=== PATIENT | female | born 1965 | race Caucasian/White ===

== ENCOUNTER 2019-03-05 22:26 | Emergency (ER) | payer BC, OTHER ==
[~2019-03-05] VITALS: Ht 170.2 cm; Wt 54.4 kg
[~2019-03-05 22:26] MED LIST: ZANTAC 7575 MG PO
--- NOTE | 2019-03-05 22:28 | NUR ---
RADIOSONDE OPERATOR NOTIFIED
--- OUTSIDE RECORDS SUMMARY | 2019-03-05 22:29 | XMS REPORT ---
Author Author [facility] Address Unknown Phone Unavailable Care Team Providers Care Hydro Plant Technician Name Role Phone Unavailable Unavailable Payers Payer Name Policy Type Policy Number Effective Date Expiration Date Problems This patient has no known problems. Allergies, Adverse Reactions, Alerts Allergy Name Allergy Type Status Severity Reaction(s) Onset Date Inactive Date Treating Clinician Comments No Known Allergies DA Active U 2018-10-28 00:00:00 No Known Allergies DA Active U 2018-07-18 00:00:00 Medications This patient has no known medications. Results Test Description Test Time Test Comments Text Results Atomic Results Result Comments TROPONIN-I 2018-10-28 23:49:00 TROPONIN-I (test code=TROPI) <0.015 ng/mL 0-0.045 COMMENTS TO INSTRUMENT LENS GRINDER: COLLECT 3 HOURS AFTER PREVIOUS [id number] 20:20:00* Test Item Value Reference Range Comments TROPONIN-I (test code=TROPI) <0.015 ng/mL 0-0.045 COMMENTS TO INSTRUMENT LENS GRINDER: COLLECT 3 HOURS AFTER PREVIOUS SAMPLE- CT ABD PELVIS W/[id number] 14:09:00 Name: ONELIATAMEKA QUICKA [facility] : 1965 Age/S: 53 / F [address] Unit #: [id number] Loc: [place] [address] Phys: Skyler Moyer MD Acct: [id number] Dis Date: Status: REG ER PHONE #: [phone] Exam Date: 10/28/2018 1329 FAX #: [phone] Reason: upper abd pain EXAMS: CPT CODE: [id number] CT ABD PELVIS W/CONT 54846 HISTORY: Mid chest pain. COMPARISON: None available. CT chest with contrast: 100 mL of Isovue-370. Automated exposure control. No aortic aneurysm or dissection. Unremarkable pulmonary arteries (not performed as PE protocol). Unremarkable neck vasculature. Well-opacified SVC. Normal thyroid glands. No mediastinal hematoma. No pathologic adenopathy. Esophageal wall is not thickened. Cardiac silhouette is normal. No p ericardial effusion. Subcutaneous tissues and the musculature demo nstrating contusion along the medial pectoralis muscle with edema. No lyti c or blastic lesions noted within the bony skeleton. Fracture of the mid s ternum along its anterior as well as the posterior cortex without displace ment. The lungs are clear of infiltrates, effusion or congestion a nd contusion. No pneumothorax is noted. Dependent changes are noted. Mild bullous changes in the apices. IMPRESSION: Right medial chest wall/pectoralis muscle contusion. Fracture of the mid sternum involving both anterior and posterior cortex without displac ement. CT ABDOMEN: The hepatic parenchyma is without laceration. Homogeneous enhancement. No perihepatic fluid is no rosalva. Markedly distended gallbladder with gallstones. U nremarkable spleen without laceration. The stomach distended incompletel y but it is normal in appearance. Pancreas is enhancing homoge neously. Unremarkable adrenals. Kidneys are free from hydroure teronephrosis. Homogeneous enhancement. Bilateral excretion is noted. No pathologic adenopathy. Well-opacified abdominal and pelvic PAGE 1 Signed Report (CONTINUED) N rich: BRIDGETT ROUSSEAU [facility] : 0 1965 Age/S: 53 / F [address] [facility] Unit #: [id number] Loc: [place] [address] Phys: Skyler Moyer MD Acct: [id number] Dis D ate: Status: REG ER PHONE #: Exam Date: 10/28/2018 1329 FAX #: [phone] Reason: upper abd pain EXAMS: CPT CODE: [id number] CT ABD PELVIS W/ CONT 40182 <Continued> vasculature with atherosclerotic change. No bowel obstruction or colitis or diverticulitis or enteritis. Mild fluid distention of the right colon. CT PELVIS: Appendix is not visible with certainty however no inflammatory changes are noted. Pelvic bowel loops are unobstructed. Unremarkable well-distended urinary bladder. The uterus is atrophied with complex cyst with partially calcified wall measuring 7.1 cm with average Hounsfield unit measurement of 35. This is seen within the left adnexa. Right ovary is not clearly identified. No free fluid or free air or abscess. No pelvic pathologic adenopathy. Subcutaneous tissues and the musculature are without contusion. No lytic or blastic lesions are noted within the bony skeleton. DJD. IMPRESSION: No acute intra-abdominal or intrapelvic pathology. Complex left adnexal cyst measuring 7.1 cm with partially calcified wall. at 1409 Repor rosalva and signed by: Erasmo Zaman M.D. CC: Skyler Moyer MD Technologist:Wali Stevenson RT(R),(MR),(CT); CTDI: DLP: Trnscb Date/Time: 10/28/2018 (7693) [email or web address] Orig Print D/T: S: 10/28/2018 (7604) CTDI: DLP: PAGE 2 Signed Report - CT CHEST W/[id number] 14:09:00 Name: BRIDGETT ROUSSEAU [facility] : 1965 Age/S: 53 / F [address] [facility] Unit #: [id number] Loc: [place] [address] Phys: Skyler Moyer MD Acct: [id number] Dis Date: Status: REG ER PHONE #: [phone] Exam Date: 10/28/2018 1329 FAX #: [phone] Reason: mid chest pain EXAMS: CPT CODE: [id number] CT CHEST W/CONTRAST 92808 HISTORY: Mid chest pain. COMPARISON: None available. CT chest with contrast: 100 mL of Isovue-370. Automated exposure control. No aortic aneurysm or dissection. Unremarkable pulmonary arteries (not performed as PE protocol). Unremarkable neck vasculature. Well-opacified SVC. Normal thyroid glands. No mediastinal hematoma. No pathologic adenopathy. Esophageal wall is not thickened. Cardiac silhouette is normal. No pericardial effusion. Subcutaneous tissues and the musculature demonstrating contusion along the medial pectoralis muscle with edema. No lytic or blastic lesions noted within the bony skeleton. Fracture of the mid sternum along its anterior as well as the posterior cortex without displacement. The lungs are clear of infiltrates, effusion or congestion and contusion. No pneumothorax is noted. Dependent changes are noted. Mild bullous changes in the apices. IMPRESSION: Right medial chest wall/pectoralis muscle contusion. Fracture of the mid sternum involving both anterior and posterior cortex without displacement. CT ABDOMEN: The hepatic parenchyma is without laceration. Homogeneous enhancement. No perihepatic fluid is noted. Markedly distended gallbladder with gallstones. Unremarkable spleen without laceration. The stomach distended incompletely but it is normal in appearance. Pancreas is enhancing homogeneously. Unremarkable adrenals. Kidneys are free from hydroure teronephrosis. Homogeneous enhancement. Bilateral excretion is noted. No pathologic adenopathy. Well-opacified abdominal and pelvic PAGE 1 Signed Report (CONTINUED) N rich: BRIDGETT ROUSSEAU [facility] : 0 1965 Age/S: 53 / F [address] [facility] Unit #: [id number] Loc: [place] [address] Phys: Skyler Moyer MD Acct: [id number] Dis D ate: Status: REG ER PHONE #: Exam Date: 10/28/2018 1329 FAX #: [phone] Reason: mid chest pain EXAMS: CPT CODE: [id number] CT CHEST W/CONTR AST 91327 <Continued> vasculature with atherosclerotic change. No bowel obstruction or colitis or diverticulitis or enteritis. Mild fluid distention of the right colon. CT PELVIS: Appendix is not visible with certainty however no inflammatory changes are noted. Pelvic bowel loops are unobstructed. Unremarkable well-distended urinary bladder. The uterus is atrophied with complex cyst with partially calcified wall measuring 7.1 cm with average Hounsfield unit measurement of 35. This is seen within the left adnexa. Right ovary is not clearly identified. No free fluid or free air or abscess. No pelvic pathologic adenopathy. Subcutaneous tissues and the musculature are without contusion. No lytic or blastic lesions are noted within the bony skeleton. DJD. IMPRESSION: No acute intra-abdominal or intrapelvic pathology. Complex left adnexal cyst measuring 7.1 cm with partially calcified wall. at 1409 Repor rosalva and signed by: Erasmo Zamna M.D. CC: Skyler Moyer MD Technologist:Wali Stevenson RT(R),(MR),(CT); CTDI: DLP: Trnscb Date/Time: 10/28/2018 (9407) [email or web address] Orig Print D/T: S: 10/28/2018 (5408) CTDI: DLP: PAGE 2 Signed Report BASIC METABOLIC [id number] 13:59:00* Test Item Value Reference Range Comments SODIUM (test code=NA) 137 mmol/L 136-145 POTASSIUM (test code=K) 3.8 mmol/L 3.5-5.1 CHLORIDE (test code=CL) 105.0 mmol/L 98-107 CARBON DIOXIDE (test code=CO2) 20.0 mmol/L 21-32 ANION GAP (test code=GAP) 15.8 10-20 GLUCOSE (test code=GLU) 82 mg/dL 74-106 BLOOD UREA NITROGEN (test code=BUN) 7 mg/dL 7-18 GLOMERULAR FILTRATION RATE (test code=GFR) > 60 mL/min >=60 Estimated GFR by using Modified MDRD formula.Chronic kidney disease is defined as either kidney damageor GFR <60 mL/min/1.73 m2 for >3 months. CREATININE (test code=CREAT) 0.50 mg/dL 0.55-1.02 Note change in reference range due to change in reagent. BUN/CREATININE RATIO (test code=BUN/CREA) 12.8 10-20 CALCIUM (test code=CA) 8.4 mg/dL 8.5-10.1 HEPATIC FUNCTION [id number] 13:59:00* Test Item Value Reference Range Comments TOTAL PROTEIN (test code=PROT) 7.4 gram/dL 6.4-8.2 ALBUMIN (test code=ALB) 3.4 g/dL 3.4-5.0 GLOBULIN (test code=GLOB) 4.0 gram/dL 2.7-4.2 ALBUMIN/GLOBULIN RATIO (test code=A/G) 0.8 0.75-1.50 BILIRUBIN TOTAL (test code=BILT) 0.40 mg/dL 0.0-1.0 BILIRUBIN DIRECT (test code=BILD) 0.12 mg/dL 0.0-0.20 SGOT/AST (test code=AST) 28 IUnit/L 15-37 SGPT/ALT (test code=ALT) 24 IUnit/L 12-78 ALKALINE PHOSPHATASE TOTAL (test code=ALKP) 92 IUnit/L 45-117 Note change in reference range due to change in reagent. [id number] 13:59:00* Test Item Value Reference Range Comments LIPASE (test code=LIP) 367 U/L 73.0-393.0 [id number] 13:59:00* Test Item Value Reference Range Comments ALCOHOL (test code=ALC) 19 mg/dL 0.0-3.0 INTERPRETIVE DATA NOTE: POSITIVE SCREENING RESULTS SHOULD BE CONSIDERED PRESUMPTIVE.WHEN COLLECTED FOR MEDICAL PURPOSES ONLY. SPECIMEN WILL NOTBE COLLECTED BY CHAIN OF CUSTODY.IF A CONFIRMATION OF POSITIVE RESULTS IS DESIRED, ACONFIRMATION TEST MUST BE REQUESTED BY THE PHYSICIAN AT ANADDITIONAL CHARGE TO THE PATIENT. - CT C-SPINE W/O [id number] 13:56:00 Name: BRIDGETT ROUSSEAU [facility] : 1965 Age/S: 53 / F [address] [facility] Unit #: [id number] Loc: [place] [address] Phys: Skyler Moyer MD Acct: [id number] Dis Date: Status: REG ER PHONE #: [phone] Exam Date: 10/28/2018 1327 FAX #: [phone] Reason: Neck Pain EXAMS: CPT CODE: [id number] CT C-SPINE W/O CONTRAST 21571 HISTORY: Neck pain. COMPARISON: None available. CT cervical spine without contrast: Automated exposure control. No acute fracture of the cervical spine. Scattered posterior marginal osteophytes. No canal or foraminal stenosis is noted. No prevertebral soft tissue swelling is noted either. Thyroid glands are unremarkable. The mediastinum is unremarkable. Lung apices are clear. Dependent and bullous changes. Anatomic alignment. Vertebral body heights are maintained. Disc spaces are preser ana. Lateral masses are well marginated IMPRESSION: No acute fracture. Anatomic alignment. Vertebral body heights are maintained. at 1356 Reported and signed by: Erasmo Zaman M.D. CC: Skyler Moyer MD Techno logist:Danisha Lal,RT(R),CT CTDI: DLP: Trnscb Date/Time : 10/28/2018 (1356) [email or web address] Orig Print D/T: S: 10/29/19 19 (5819) CTDI: DLP: PAGE 1 Nori d Report BASIC METABOLIC [id number] 13:51:00 * Test Item Value Reference Range Comments SODIUM (test code=NA) 137 mmol/L 136-145 POTASSIUM (test code=K) 3.8 mmol/L 3.5-5.1 CHLORIDE (test code=CL) 105.0 mmol/L 98-107 CARBON DIOXIDE (test code=CO2) mmol/L 21-32 ANION GAP (test code=GAP) 10-20 GLUCOSE (test code=GLU) mg/dL 74-106 BLOOD UREA NITROGEN (test code=BUN) mg/dL 7-18 GLOMERULAR FILTRATION RATE (test code=GFR) mL/min >=60 CREATININE (test code=CREAT) mg/dL 0.55-1.02 BUN/CREATININE RATIO (test code=BUN/CREA) 10-20 CALCIUM (test code=CA) mg/dL 8.5-10.1 HEPATIC FUNCTION [id number] 13:51:00* Test Item Value Reference Range Comments TOTAL PROTEIN (test code=PROT) gram/dL 6.4-8.2 ALBUMIN (test code=ALB) g/dL 3.4-5.0 GLOBULIN (test code=GLOB) gram/dL 2.7-4.2 ALBUMIN/GLOBULIN RATIO (test code=A/G) 0.75-1.50 BILIRUBIN TOTAL (test code=BILT) mg/dL 0.0-1.0 BILIRUBIN DIRECT (test code=BILD) mg/dL 0.0-0.20 SGOT/AST (test code=AST) IUnit/L 15-37 SGPT/ALT (test code=ALT) IUnit/L 12-78 ALKALINE PHOSPHATASE TOTAL (test code=ALKP) IUnit/L 45-117 [id number] 13:51:00* Test Item Value Reference Range Comments LIPASE (test code=LIP) U/L 73.0-393.0 [id number] 13:51:00* Test Item Value Reference Range Comments ALCOHOL (test code=ALC) mg/dL 0-3 CBC W/O [id number] 13:42:00* Test Item Value Reference Range Comments WHITE BLOOD CELL (test code=WBC) 6.7 K/mm3 4.5-12.5 RED BLOOD CELL (test code=RBC) 3.99 mill/mm3 3.7-5.2 HEMOGLOBIN (test code=HGB) 12.8 gram/dL 11.5-15.5 HEMATOCRIT (test code=HCT) 37.7 % 36.0-46.0 MEAN CELL VOLUME (test code=MCV) 94.5 fL 80-98 MEAN CELL HGB (test code=MCH) 32.1 picogram 27.0-33.0 MEAN CELL HGB CONCETRATION (test code=MCHC) 34.0 gram/dL 33.0-36.0 RED CELL DISTRIBUTION WIDTH (test code=RDW) 12.5 % 11.6-16.2 PLATELET COUNT (test code=PLT) 156 K/mm3 150-450 MEAN PLATELET VOLUME (test code=MPV) 11.1 fL 6.7-11.0 - CT HEAD/BRAIN W/O [id number] 13:40:00 Name: BRIDGETT ROUSSEAU [facility] : 1965 Age/S: 53 / F [address] [facility] Unit #: [id number] Loc: [place] [address] Phys: Skyelr Moyer MD Acct: [id number] Dis Date: Status: REG ER PHONE #: [phone] Exam Date: 10/28/2018 1327 FAX #: [phone] Reason: HEADACHE EXAMS: CPT CODE: [id number] CT HEAD/BRAIN W/O CONT 93572 HISTORY: Headache. COMPARISON: MRI brain from July 19, [address] from July 18, 2018. CT brain without contrast: Automated exposure control. No acute intracranial bleeds or extra-axial collections are noted. No acute territorial vascular infarction is noted. 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 The sulci, gyri, ventricles and subarachnoid spaces and the basilar cisterns are normal for patient's age. No herniation or hydrocephalus or midline shift is noted. Mild periventricular ischemic gliosis is noted. Age-appropriate atrophy is noted as well. Portions of the visualized paranasal sinuses are normal. No obvious bony calvarial defect is noted. IMPRESSION: No acute intracranial bleeds or extra-axial c ollections. No acute territorial vascular infarction. No herniation or hydrocephalus or midline shift. Ch ronic white matter ischemic disease and atrophy . * * at 1340 Reported and signed by: Erasmo Zaman M.D. CC: Skyler Moyer MD Technologist:Danisha Lal,RT(R),CT CTDI: DLP: Trnscb Date/Time: 10/28/2018 (1340) [email or web address] Orig Print D/T: S: 10/28/2018 (9153) CTDI: DLP: PAGE 1 Signed Report - XR FOREARM 2 VIEWS [id number] 12:41:00 FAX: Skyler Moyer MD [phone] [place]: [address]: REG Name: BRIDGETT MINER [facility] : [birth year] Age/S: 53/F [address] Unit #: [id number] Loc: [place] [address] Phys: Skyler Moyer MD Acct: [id number] Dis Date: Status: REG ER PHONE #: [phone] Exam Date: 10/28/2018 1220 FAX #: [phone] Reason: FOREARM PAIN EXAMS: CPT CODE: [id number] XR FOREARM [address] [place] [address] HISTORY: Pain after trauma. COMPARISON: None available. 3 VIEWS OF THE RIGHT HAND AND WRIST: No acute fracture or dislocation. Ring obscures the first p roximal phalanx. Joint spaces are preserved. No erosive or destructive changes. The wrist joint is preserved. No AVN of the lunate or the scap hoid bones. IMPRESSION: No acute fracture or d islocation of the right hand and wrist. 2 VIEWS OF THE LEFT FOREARM: Nondisplaced fracture of the distal ulnar diaphysis. Fracture of the ulna styloid as well. The wrist joint is preserved. No radial fracture. The elbow joint appears unremarkable a s well. No elbow joint fluid is noted. IMPRESSION: Acute traumatic oblique nondisplaced fracture of the distal ulnar diaphysis and fracture of the ulnar styloid. at 1241 Repor rosalva and signed by: Erasmo Zaman M.D. CC: Skyler Moyer MD Technologist: NKECHI RODRIGUEZ RT (R) Trnscrd Date/Time/By: 10/28/2018 (3073) : By: [email or web address] Orig Print D/T: S: 10/28/2018 (6964) PAGE 1 Signed Report - XR WRIST 3 + V RT 2018-10-28 12:41:00 FAX: Skyler Moyer MD [phone] [place]: St: REG Name: BRIDGETT MINER [facility] : [birth year] Age/S: 53/F [address] [facility] #: [id number] Loc: [place] [address] Phys: Skyler Moyer MD Acct: [id number] Dis Date: Status: REG ER PHONE #: [phone] Exam Date: 10/28/2018 1226 FAX #: [phone] Reason: WRIST PAIN EXAMS: CPT CODE: [id number] XR WRIST 3 + V RT [address] HISTORY: Pain after trauma. COMPARISON: None available. 3 VIEWS OF THE RIGHT HAND AND WRIST: No acute fracture or dislocation. Ring obscures the first p roximal phalanx. Joint spaces are preserved. No erosive or destructive changes. The wrist joint is preserved. No AVN of the lunate or the scap hoid bones. IMPRESSION: No acute fracture or d islocation of the right hand and wrist. 2 VIEWS OF THE LEFT FOREARM: Nondisplaced fracture of the distal ulnar diaphysis. Fracture of the ulna styloid as well. The wrist joint is preserved. No radial fracture. The elbow joint appears unremarkable a s well. No elbow joint fluid is noted. IMPRESSION: Acute traumatic oblique nondisplaced fracture of the distal ulnar diaphysis and fracture of the ulnar styloid. at 1241 Repor rosalva and signed by: Erasmo Zaman M.D. CC: Skyler Moyer MD Technologist: NKECHI RORDIGUEZ RT (R) Trnscrd Date/Time/By: 10/28/2018 (0997) : By: [email or web address] Orig Print D/T: S: 10/28/2018 (0444) PAGE 1 Signed Report - XR HAND 3 + V RT 2018-10-28 12:41:00 FAX: Skyler Moyer MD [phone] [place]: St: REG Name: BRIDGETT MINER [facility] : [birth year] Age/S: 53/F [address] [facility] Unit #: [id number] Loc: [place] [address] Phys: Skyler Moyer MD Acct: [id number] Dis Date: Status: REG ER PHONE #: [phone] Exam Date: 10/28/2018 1230 FAX #: [phone] Reason: HAND PAIN EXAMS: CPT CODE: [id number] XR HAND 3 + [place] [address] HISTORY: Pain after trauma. COMPARISON: None available. 3 VIEWS OF THE RIGHT HAND AND WRIST: No acute fracture or dislocation. Ring obscures the first p roximal phalanx. Joint spaces are preserved. No erosive or destructive changes. The wrist joint is preserved. No AVN of the lunate or the scap hoid bones. IMPRESSION: No acute fracture or d islocation of the right hand and wrist. 2 VIEWS OF THE LEFT FOREARM: Nondisplaced fracture of the distal ulnar diaphysis. Fracture of the ulna styloid as well. The wrist joint is preserved. No radial fracture. The elbow joint appears unremarkable a s well. No elbow joint fluid is noted. IMPRESSION: Acute traumatic oblique nondisplaced fracture of the distal ulnar diaphysis and fracture of the ulnar styloid. at 1241 Repor rosalva and signed by: Erasmo Zaman M.D. CC: Skyler Moyer MD Technologist: NKECHI RODRIGUEZ RT (R) Trnscrd Date/Time/By: 10/28/2018 (3227) : By: [email or web address] Orig Print D/T: S: 10/28/2018 (6341) PAGE 1 Signed Report - XR CHEST 1 [id number] 12:37:00 FAX: Skyler Moyer MD [phone] [place]: St: REG Name: Flora MUELLERBRIDGETT [facility] : [birth year] Age/S: 53/F [address] Unit #: [id number] Loc: [place] [address] Phys: Skyler Moyer MD Acct: [id number] Dis Date: Status: REG ER PHONE #: [phone] Exam Date: 10/28/2018 1217 FAX #: [phone] Reason: CHEST PAIN EXAMS: CPT CODE: [id number] XR CHEST 1 V 71784 HISTORY: Pain. BRENDON RISON: None available. No acute infiltrates, effusion or congestio n is noted. No pneumothorax. Mild hyperinflation and bullous changes. The cardiac and mediastinal silhouette are within normal limits. IMPRESSION: No acute infiltrates, effusion or con gestion. at 1232 Reported and signed by: Erasmo Zaman M.D. CC: Skyler Moyer MD Technologist: NKECHI BARNES (R) Trnscrd Giovanny e/Time/By: 10/28/2018 (5880) : By: [email or web address] Orig Print D/T: S: 2018 (7560) PAGE 1 Signed Report
--- NOTE | 2019-03-05 23:03 | Diagnostic Imaging Report ---
EXAMINATION: Head CT HISTORY: Left-sided numbness for the last month, evaluate for stroke COMPARISON: None. TECHNIQUE: Multidetector axial images were obtained without contrast from the foramen magnum to the vertex . The images were reconstructed using brain and bone algorithms. Thin section brain images were reformatted into coronal and sagittal planes. Image quality: Motion/streaking artifact limits the evaluation of the skull base and posterior cranial fossa. Dose modulation, iterative reconstruction, and/or weight based adjustment of the mA/kV was utilized to reduce the radiation dose to as low as reasonably achievable. FINDINGS: Parenchyma: 1. Small age indeterminate, likely chronic lacunar infarcts in the right striato-capsular region and 2 smaller ones in the right thalamus. 2. Few scattered matter hypodensities, most likely nonspecific, atelectatic changes. 3. No mass or hemorrhage. No CT evidence of acute territorial vascular insult. Extra-axial spaces:No abnormal density. No extra-axial fluid collections Brain volume: Normal for age. Ventricles: No hydrocephalus or displacement. Arteries: No density suggestive of thrombus. Dural sinuses: No abnormal density. Extra-axial spaces: No abnormal density. Foramen magnum: No mass, Chiari malformation, or basilar invagination. Sella: No obvious mass. Paranasal/mastoid sinuses: Imaged portions unremarkable. Skull/Scalp: No lytic or blastic lesions. No fractures. IMPRESSION: 1. No acute intracranial hemorrhage or cortical infarct. 2. Age indeterminate likely chronic lacunar infarcts in the right deep flores nuclei as detailed above. If clinical concern remains for acute infarction consider brain MRI without and with contrast for further evaluation. 3. Mild chronic microvascular ischemic changes. Signed by: Dr. Leticia Madden M.D. on 03/05/2019 11:00 PM
[2019-03-05 23:04] LABS: BASOPHILS % 0.4 % (0.0-1.0); EOSINOPHILS # (AUTO) 0.2 (0.0-0.4); EOSINOPHILS % 3.3 % (0.0-6.0); HEMATOCRIT 37.3 % (34.2-44.1); HEMOGLOBIN 13.1 g/dL (12.0-16.0); LYMPHOCYTES % 41.9 % (18.0-39.1); MEAN CORPUSCULAR HEMOGLOBIN 33.2 pg (28-32); MEAN CORPUSCULAR HGB CONC 35.1 g/dL (31-35); MEAN CORPUSCULAR VOLUME 94.7 fL (81-99); MONOCYTES # (AUTO) 0.4 (0.2-0.8); MONOCYTES % 8.3 % (4.4-11.3); NEUTROPHILS # (AUTO) 2.2 (2.1-6.9); NEUTROPHILS % 45.5 % (38.7-80.0); PLATELET COUNT 121 x10e3/uL (140-360); RED BLOOD COUNT 3.94 x10e6/uL (3.6-5.1); RED CELL DISTRIBUTION WIDTH 12.1 % (11.7-14.4)
[2019-03-05 23:14] LABS: INR 0.94; PROTHROMBIN TIME 13.1 seconds (11.9-14.5)
[2019-03-05 23:15] LABS: PARTIAL THROMBOPLASTIN TIME 27.5 seconds (23.8-35.5)
[2019-03-05 23:24] LABS: ALANINE AMINOTRANSFERASE 30 IU/L (0-55); ALBUMIN 3.7 g/dL (3.5-5.0); ALBUMIN/GLOBULIN RATIO 1.3 (0.8-2.0); ALKALINE PHOSPHATASE 90 IU/L (40-150); ANION GAP 17.5 mmol/L (8-16); BLOOD UREA NITROGEN < 5 mg/dL (7-26); CARBON DIOXIDE 20 mmol/L (22-29); CHLORIDE 97 mmol/L (98-107); CREATINE KINASE 49 IU/L (29-168); CREATININE, SERUM 0.58 mg/dL (0.57-1.11); EST GLOMERULAR FILTRATION RATE > 60 ML/MIN (60-); GLUCOSE 77 mg/dL (74-118); POTASSIUM 3.5 mmol/L (3.5-5.1); SODIUM 131 mmol/L (136-145)
[2019-03-05 23:26] LABS: BUN/CREATININE RATIO 9 (6-25)
[2019-03-05 23:38] LABS: BILIRUBIN,URINE NEGATIVE (NEGATIVE); CLARITY,URINE CLEAR (CLEAR); COLOR,URINE YELLOW (YELLOW); KETONES,URINE NEGATIVE (NEGATIVE); LEUKOCYTE ESTERASE ,URINE NEGATIVE (NEGATIVE); NITRITE,URINE NEGATIVE (NEGATIVE); PROTEIN,URINE DIPSTICK NEGATIVE (NEGATIVE); URINE UROBILINOGEN 0.2 mg/dL (0.2 - 1)
[2019-03-05 23:40] LABS: AMPHETAMINES SCREEN,URINE NEGATIVE (NEGATIVE); BENZODIAZEPINES SCREEN,URINE NEGATIVE (NEGATIVE); PHENCYCLIDINE SCREEN,URINE NEGATIVE (NEGATIVE)
[2019-03-05 23:51] LABS: RBC,URINE 0-5 /HPF (0-5)
[2019-03-05 23:52] LABS: BACTERIA,URINE MODERATE /HPF; EPITHELIAL CELLS,URINE FEW /LPF
[2019-03-06 00:14] VITALS: BP 129/68
--- NOTE | 2019-03-06 00:37 | Diagnostic Imaging Report ---
EXAMINATION: CHEST SINGLE (PORTABLE) INDICATION: Left-sided numbness COMPARISON: None FINDINGS: AP view TUBES and LINES: None. LUNGS: Lungs are well inflated. Lungs are clear. There is no evidence of pneumonia or pulmonary edema. PLEURA: No pleural effusion or pneumothorax. HEART AND MEDIASTINUM: The cardiomediastinal silhouette is unremarkable. A 4 mm round hyperdensity projects in the mid upper mediastinum. BONES AND SOFT TISSUES: No acute osseous lesion. Soft tissues are unremarkable. UPPER ABDOMEN: No free air under the diaphragm. IMPRESSION: No acute cardiopulmonary abnormality. A 4 mm round hyperdensity projects in the mid upper mediastinum, unclear if this is external to the patient. Recommend lateral chest radiograph for localization. Signed by: Jose Alfredo Mcintosh DO on 03/06/2019 12:34 AM
== END 2019-03-06 00:26 | disposition home or self-care (01) ==
LOC: ER 22:29
DX: R53.1 Weakness (principal); F10.229 Alcohol dependence with intoxication, unspecified; I10 Essential (primary) hypertension; F17.210 Nicotine dependence, cigarettes, uncomplicated
CPT/HCPCS: 36415; 70450; 71045; 80053; 80307; 80320; 81001; 82550; 82553; 84484; 85025; 85610; 85730; 93005; 99284

== ENCOUNTER 2021-07-23 08:59 | Inpatient (IN) | payer SELFPAY ==
[~2021-07-23] VITALS: Ht 170.2 cm; Wt 54.4 kg
[2021-07-23] MEDS ORDERED: SODIUM CHLORIDE 0.9% 1000ML 1,000 ML IV STA (09:31)
[2021-07-23] MEDS ORDERED: ONDANSETRON HCL INJ 2MG/ML 2ML 2 MG/ML VIAL IV STA (09:31)
[2021-07-23 09:56] LABS: BASOPHILS % 0.5 % (0.0-1.0); EOSINOPHILS # (AUTO) 0.1 (0.0-0.4); EOSINOPHILS % 2.3 % (0.0-6.0); HEMATOCRIT 29.5 % (34.2-44.1); HEMOGLOBIN 9.8 g/dL (12.0-16.0); LYMPHOCYTES # (AUTO) 1.2 (1.0-3.2); MEAN CORPUSCULAR HEMOGLOBIN 32.8 pg (28-32); MEAN CORPUSCULAR HGB CONC 33.2 g/dL (31-35); MEAN CORPUSCULAR VOLUME 98.7 fL (81-99); MONOCYTES # (AUTO) 0.5 (0.2-0.8); MONOCYTES % 9.2 % (4.4-11.3); NEUTROPHILS # (AUTO) 3.8 (2.1-6.9); NEUTROPHILS % 66.5 % (38.7-80.0); PLATELET COUNT 170 x10e3/uL (140-360); RED BLOOD COUNT 2.99 x10e6/uL (3.6-5.1); RED CELL DISTRIBUTION WIDTH 13.6 % (11.7-14.4)
[2021-07-23 10:13] LABS: ALANINE AMINOTRANSFERASE 37 IU/L (0-55); ALBUMIN 2.7 g/dL (3.5-5.0); ALBUMIN/GLOBULIN RATIO 0.9 (0.8-2.0); ALKALINE PHOSPHATASE 176 IU/L (40-150); AMYLASE 162 U/L (25-125); ANION GAP 19.1 mmol/L (8-16); BLOOD UREA NITROGEN < 5 mg/dL (7-26); CALCIUM 8.6 mg/dL (8.4-10.2); CARBON DIOXIDE 24 mmol/L (22-29); CHLORIDE 89 mmol/L (98-107); CREATINE KINASE 23 IU/L (29-168); CREATININE, SERUM 0.71 mg/dL (0.57-1.11); EST GLOMERULAR FILTRATION RATE 85 ML/MIN (60-); GLUCOSE 103 mg/dL (74-118); LIPASE 42 U/L (8-78); MAGNESIUM 1.6 MG/DL (1.3-2.1); POTASSIUM 3.1 mmol/L (3.5-5.1); SODIUM 129 mmol/L (136-145)
[2021-07-23 10:14] LABS: BUN/CREATININE RATIO 7 (6-25); INR 1.06; PROTHROMBIN TIME 14.7 seconds (11.9-14.5)
[2021-07-23 11:16] LABS: CLARITY,URINE CLEAR (CLEAR); COLOR,URINE YELLOW (YELLOW); LEUKOCYTE ESTERASE ,URINE NEGATIVE (NEGATIVE); NITRITE,URINE NEGATIVE (NEGATIVE); PROTEIN,URINE DIPSTICK NEGATIVE (NEGATIVE)
[2021-07-23 11:17] LABS: KETONES,URINE 1+ (NEGATIVE); URINE UROBILINOGEN 0.2 mg/dL (0.2 - 1)
[2021-07-23 11:34] LABS: BACTERIA,URINE MANY /HPF; EPITHELIAL CELLS,URINE FEW /LPF
[2021-07-23 11:35] LABS: AMPHETAMINES SCREEN,URINE NEGATIVE (NEGATIVE); BENZODIAZEPINES SCREEN,URINE NEGATIVE (NEGATIVE); PHENCYCLIDINE SCREEN,URINE NEGATIVE (NEGATIVE)
[2021-07-23] MEDS ORDERED: POTASSIUM CHLORIDE 20 MEQ TAB CR PO STA (12:51)
[2021-07-23] MEDS: PIPERACILLIN/TAZOBACTAM 3.375 GM in SODIUM CHLORIDE 0.9% 50ML 50 ML IV SCH ×2 (13:24→17:38)
[2021-07-23] MEDS: SODIUM CHLORIDE 0.9% 1000ML 1,000 ML IV SCH (14:13)
[2021-07-23 17:18] LABS: CREATINE KINASE MB 0.4 ng/mL (0-5.0)
[2021-07-23 17:20] VITALS: BP 121/73
[2021-07-23] MEDS: Morphine 4mg Syringe 4 MG/ML INJ IV PRN ×2 (17:39→22:05)
[2021-07-23] MEDS: ONDANSETRON HCL INJ 2MG/ML 2ML 2 MG/ML VIAL IV PRN (17:39)
[2021-07-23] MEDS ORDERED: POTASSIUM CHLORIDE 20 MEQ TAB CR PO ONE (19:25)
[2021-07-23 20:00] VITALS: BP 100/70
[2021-07-23 21:00] VITALS: BP 100/70
[2021-07-23 23:29] LABS: % IRON SATURATION 38 % (15-50); IRON 64 ug/dL (50-170); TOTAL IRON BINDING CAPACITY 169 ug/dL (261-478); TRANSFERRIN 121 mg/dL (180-382)
[2021-07-23] MEDS ORDERED: THIAMINE HCL INJ 100 MG/ML 2ML VIAL ONE (23:55)
[2021-07-24] VITALS: BP 98/66
[2021-07-24] MEDS ORDERED: MULTIVITAMINS- 12 INJECTION 10 ML, FOLIC ACID MDV 1 MG, THIAMINE HCL INJ 100 MG in SODI... IV ONE ×4
[2021-07-24] MEDS: PIPERACILLIN/TAZOBACTAM 3.375 GM in SODIUM CHLORIDE 0.9% 50ML 50 ML IV SCH ×4 (00:30→16:24)
[2021-07-24] MEDS ORDERED: FOLIC ACID 5 MG/ML VIAL ONE (00:38)
[2021-07-24] MEDS: Morphine 4mg Syringe 4 MG/ML INJ IV PRN ×5 (02:25→20:23)
[2021-07-24] MEDS: SODIUM CHLORIDE 0.9% 1000ML 1,000 ML IV SCH (02:50)
[2021-07-24 05:14] LABS: BASOPHILS % 0.7 % (0.0-1.0); EOSINOPHILS # (AUTO) 0.2 (0.0-0.4); EOSINOPHILS % 3.7 % (0.0-6.0); HEMATOCRIT 24.5 % (34.2-44.1); HEMOGLOBIN 8.1 g/dL (12.0-16.0); LYMPHOCYTES % 24.7 % (18.0-39.1); MEAN CORPUSCULAR HEMOGLOBIN 33.3 pg (28-32); MEAN CORPUSCULAR HGB CONC 33.1 g/dL (31-35); MEAN CORPUSCULAR VOLUME 100.8 fL (81-99); MONOCYTES # (AUTO) 0.5 (0.2-0.8); MONOCYTES % 11.4 % (4.4-11.3); NEUTROPHILS # (AUTO) 2.4 (2.1-6.9); NEUTROPHILS % 59.3 % (38.7-80.0); PLATELET COUNT 120 x10e3/uL (140-360); RED BLOOD COUNT 2.43 x10e6/uL (3.6-5.1)
[2021-07-24 05:39] LABS: ALANINE AMINOTRANSFERASE 20 IU/L (0-55); ALBUMIN 2.2 g/dL (3.5-5.0); ALKALINE PHOSPHATASE 121 IU/L (40-150); AMYLASE 128 U/L (25-125); ANION GAP 13.8 mmol/L (8-16); BLOOD UREA NITROGEN < 5 mg/dL (7-26); CALCIUM 7.5 mg/dL (8.4-10.2); CARBON DIOXIDE 23 mmol/L (22-29); CHLORIDE 101 mmol/L (98-107); CREATININE, SERUM 0.61 mg/dL (0.57-1.11); EST GLOMERULAR FILTRATION RATE 102 ML/MIN (60-); GLUCOSE 71 mg/dL (74-118); LIPASE 17 U/L (8-78); POTASSIUM 3.8 mmol/L (3.5-5.1); SODIUM 134 mmol/L (136-145)
[2021-07-24 05:49] LABS: BUN/CREATININE RATIO 8 (6-25)
[2021-07-24 05:58] LABS: CREATINE KINASE MB 0.4 ng/mL (0-5.0)
[2021-07-24 07:40] VITALS: BP 92/68
[2021-07-24 08:00] VITALS: BP 92/68
[2021-07-24 11:09] VITALS: BP 104/64
[2021-07-24] MEDS ORDERED: SODIUM CHLORIDE 0.9% 50ML 50 ML ONE (11:13)
[2021-07-24 14:01] LABS: CREATINE KINASE MB 0.7 ng/mL (0-5.0)
[2021-07-24 16:26] LABS: BODY FLUID APPEARANCE SL.CLOUDY; BODY FLUID COLOR YELLOW; BODY FLUID TYPE PERITONEAL; RBC,BODY FLUID < 200 cells/uL; WBC,BODY FLUID 91 cells/uL
[2021-07-24 17:14] LABS: LYMPHOCYTES,BODY FLUID 34 %; MONO/MACROPHG,BODY FLUID 39 %; NEUTROPHILS,BODY FLUID 27 %
[2021-07-24 20:00] VITALS: BP 107/73
[2021-07-24] MEDS: ONDANSETRON HCL INJ 2MG/ML 2ML 2 MG/ML VIAL IV PRN (20:23)
[2021-07-25] VITALS: BP 109/62
[2021-07-25] MEDS: PIPERACILLIN/TAZOBACTAM 3.375 GM in SODIUM CHLORIDE 0.9% 50ML 50 ML IV SCH ×3 (00:25→11:19)
[2021-07-25] MEDS: ONDANSETRON HCL INJ 2MG/ML 2ML 2 MG/ML VIAL IV PRN (00:32)
[2021-07-25] MEDS: Morphine 4mg Syringe 4 MG/ML INJ IV PRN ×3 (00:32→12:55)
[2021-07-25 04:00] VITALS: BP 90/61
[2021-07-25 04:58] LABS: BASOPHILS # (AUTO) 0.1 (0.0-0.1); EOSINOPHILS # (AUTO) 0.2 (0.0-0.4); EOSINOPHILS % 4.6 % (0.0-6.0); HEMATOCRIT 25.1 % (34.2-44.1); HEMOGLOBIN 8.1 g/dL (12.0-16.0); LYMPHOCYTES # (AUTO) 1.2 (1.0-3.2); LYMPHOCYTES % 24.8 % (18.0-39.1); MEAN CORPUSCULAR HEMOGLOBIN 32.9 pg (28-32); MEAN CORPUSCULAR HGB CONC 32.3 g/dL (31-35); MONOCYTES # (AUTO) 0.5 (0.2-0.8); MONOCYTES % 10.2 % (4.4-11.3); NEUTROPHILS # (AUTO) 2.8 (2.1-6.9); NEUTROPHILS % 58.8 % (38.7-80.0); PLATELET COUNT 130 x10e3/uL (140-360); RED BLOOD COUNT 2.46 x10e6/uL (3.6-5.1); RED CELL DISTRIBUTION WIDTH 13.9 % (11.7-14.4)
[2021-07-25 05:25] LABS: ANION GAP 13.3 mmol/L (8-16); BLOOD UREA NITROGEN < 5 mg/dL (7-26); CALCIUM 7.5 mg/dL (8.4-10.2); CARBON DIOXIDE 22 mmol/L (22-29); CHLORIDE 102 mmol/L (98-107); CREATININE, SERUM 0.55 mg/dL (0.57-1.11); EST GLOMERULAR FILTRATION RATE 115 ML/MIN (60-); POTASSIUM 3.3 mmol/L (3.5-5.1); SODIUM 134 mmol/L (136-145)
[2021-07-25 05:26] LABS: BUN/CREATININE RATIO 9 (6-25)
[2021-07-25 05:37] LABS: GLUCOSE 53 mg/dL (74-118)
[2021-07-25 07:51] VITALS: BP 93/61
[2021-07-25 08:00] VITALS: BP 93/61
[2021-07-25] MEDS ORDERED: FOLIC ACID 1 MG TAB PO SCH (09:00)
[2021-07-25 11:44] VITALS: BP 104/59
== END 2021-07-25 14:45 | disposition home or self-care (01) | DRG 434 ==
LOC: ER 09:22 → ERHOLD 13:34 → MED/SURG 17:18
PROC: 0W9G3ZZ Drainage of Peritoneal Cavity, Percutaneous Approach (ICD-10-PCS; principal; 2021-07-24)
DX: K70.31 Alcoholic cirrhosis of liver with ascites (principal); J44.9 Chronic obstructive pulmonary disease, unspecified; K80.80 Other cholelithiasis without obstruction; I10 Essential (primary) hypertension; Z20.822 Contact with and (suspected) exposure to COVID-19; F10.20 Alcohol dependence, uncomplicated; N83.9 Noninflammatory disorder of ovary, fallopian tube and broad ligament, unspecified; K59.00 Constipation, unspecified; D64.9 Anemia, unspecified
CPT/HCPCS: 36415; 49083; 71045; 74177; 74181; 74470; 76856; 80048; 80053; 80307; 81001; 82040; 82150; 82550; 82553; 82607; 82746; 83540; 83690; 83735; 83880; 84157; 84466; 84484; 85025; 85045; 85610; 85730; 86304; 87070; 87086; 87205; 88112; 88305; 89051; 93005; 94799; 99284; J2270; J2405; J2543; J3411; J7030; U0002

== ENCOUNTER 2023-06-14 10:58 | Inpatient (IN) | payer BC ==
[~2023-06-14] VITALS: Ht 170.2 cm; Wt 55.3 kg
[2023-06-14 11:41] LABS: BASOPHILS % 0.6 % (0.0-1.0); EOSINOPHILS % 0.6 % (0.0-6.0); HEMATOCRIT 36.9 % (34.2-44.1); HEMOGLOBIN 13.7 g/dL (12.0-16.0); LYMPHOCYTES # (AUTO) 1.4 (1.0-3.2); LYMPHOCYTES % 20.7 % (18.0-39.1); MEAN CORPUSCULAR HEMOGLOBIN 33.5 pg (28-32); MEAN CORPUSCULAR HGB CONC 37.1 g/dL (31-35); MEAN CORPUSCULAR VOLUME 90.2 fL (81-99); MONOCYTES # (AUTO) 0.5 (0.2-0.8); MONOCYTES % 7.3 % (4.4-11.3); NEUTROPHILS # (AUTO) 4.8 (2.1-6.9); NEUTROPHILS % 70.4 % (38.7-80.0); PLATELET COUNT 165 x10e3/uL (140-360); RED BLOOD COUNT 4.09 x10e6/uL (3.6-5.1); RED CELL DISTRIBUTION WIDTH 12.4 % (11.7-14.4); WHITE BLOOD COUNT 6.85 x10e3/uL (4.8-10.8)
[2023-06-14 11:58] LABS: INR 0.95; PARTIAL THROMBOPLASTIN TIME 27.3 seconds (23.8-35.5); PROTHROMBIN TIME 13.2 seconds (11.9-14.5)
[2023-06-14 12:08] LABS: CALCIUM 9.6 mg/dL (8.4-10.2); CREATININE, SERUM 0.68 mg/dL (0.57-1.11)
[2023-06-14] MEDS ORDERED: IOPAMIDOL 370 MG/ML 100 ML INFUS..BTL INJ ONE (12:16)
[2023-06-14] MEDS ORDERED: SODIUM CHLORIDE FLUSH 10 ML SYR INJ PRN (13:45)
[2023-06-14] MEDS ORDERED: ACETAMINOPHEN 325 MG TAB PO PRN (20:15)
[2023-06-14] MEDS ORDERED: FAMOTIDINE 20 MG TAB PO PRN (20:15)
[2023-06-14 21:14] LABS: CLARITY,URINE CLEAR (CLEAR); COLOR,URINE YELLOW (YELLOW); LEUKOCYTE ESTERASE ,URINE NEGATIVE (NEGATIVE); NITRITE,URINE NEGATIVE (NEGATIVE); PROTEIN,URINE DIPSTICK NEGATIVE (NEGATIVE)
[2023-06-14 21:15] LABS: KETONES,URINE NEGATIVE (NEGATIVE); URINE UROBILINOGEN 0.2 mg/dL (0.2 - 1)
[2023-06-14 21:21] VITALS: BP 128/63; PULSE 84; RESP 16; TEMP 97.7; O2SAT 100
[2023-06-14 21:30] LABS: BACTERIA,URINE MODERATE /HPF; EPITHELIAL CELLS,URINE MODERATE /LPF
[2023-06-14] MEDS: ATORVASTATIN 40 MG TAB PO SCH (22:46)
[2023-06-14] MEDS: MELATONIN 5 MG TABLET PO PRN (22:47)
[2023-06-14] MEDS ORDERED: AMLODIPINE BESYL5 MG PO (22:51)
[2023-06-14 22:58] VITALS: BP 128/63; PULSE 84; RESP 16; TEMP 97.7; O2SAT 100
[2023-06-14 23:00] VITALS: BP 128/63; PULSE 84; RESP 16; TEMP 97.7; O2SAT 100
[2023-06-15] VITALS (8 sets, daily range): BP systolic 98–135; BP diastolic 58–79; PULSE 71–92; RESP 15–19; TEMP 97.7–99.3; O2SAT 96–100
[2023-06-15 05:09] LABS: BASOPHILS % 0.6 % (0.0-1.0); EOSINOPHILS # (AUTO) 0.1 (0.0-0.4); HEMOGLOBIN 12.4 g/dL (12.0-16.0); LYMPHOCYTES # (AUTO) 1.8 (1.0-3.2); LYMPHOCYTES % 35.9 % (18.0-39.1); MEAN CORPUSCULAR HEMOGLOBIN 33.1 pg (28-32); MEAN CORPUSCULAR HGB CONC 36.5 g/dL (31-35); MEAN CORPUSCULAR VOLUME 90.7 fL (81-99); MONOCYTES # (AUTO) 0.5 (0.2-0.8); MONOCYTES % 10.1 % (4.4-11.3); NEUTROPHILS # (AUTO) 2.6 (2.1-6.9); PLATELET COUNT 144 x10e3/uL (140-360); RED BLOOD COUNT 3.75 x10e6/uL (3.6-5.1); RED CELL DISTRIBUTION WIDTH 12.3 % (11.7-14.4); WHITE BLOOD COUNT 5.04 x10e3/uL (4.8-10.8)
[2023-06-15 05:29] LABS: ALBUMIN 3.7 g/dL (3.5-5.0); ALBUMIN/GLOBULIN RATIO 1.4 (0.8-2.0); ANION GAP 11.5 mmol/L (8-16); CALCIUM 9.2 mg/dL (8.4-10.2); CHOL/HDL RATIO 2.2 (3.0-3.6); CREATININE, SERUM 0.6 mg/dL (0.57-1.11); POTASSIUM 3.5 mmol/L (3.5-5.1)
[2023-06-15] MEDS ORDERED: ASPIRIN 325 MG TAB EC PO SCH (09:00)
[2023-06-15] MEDS: ASPIRIN 81 MG ENTERIC COATED PO SCH ×2 (10:55→11:21)
[2023-06-15] MEDS: ATORVASTATIN 40 MG TAB PO SCH (20:31)
[2023-06-15] MEDS: MELATONIN 5 MG TABLET PO PRN (20:31)
[2023-06-16] VITALS: BP 119/57; PULSE 95; RESP 16; TEMP 99.6; O2SAT 96
[2023-06-16 04:00] VITALS: BP 114/63; PULSE 88; RESP 16; TEMP 99.6; O2SAT 92
[2023-06-16 04:59] LABS: BASOPHILS % 0.2 % (0.0-1.0); HEMATOCRIT 32.8 % (34.2-44.1); HEMOGLOBIN 12.1 g/dL (12.0-16.0); LYMPHOCYTES # (AUTO) 0.8 (1.0-3.2); LYMPHOCYTES % 17.1 % (18.0-39.1); MEAN CORPUSCULAR HEMOGLOBIN 33.3 pg (28-32); MEAN CORPUSCULAR HGB CONC 36.9 g/dL (31-35); MEAN CORPUSCULAR VOLUME 90.4 fL (81-99); MONOCYTES # (AUTO) 0.4 (0.2-0.8); MONOCYTES % 7.9 % (4.4-11.3); NEUTROPHILS # (AUTO) 3.4 (2.1-6.9); NEUTROPHILS % 74.4 % (38.7-80.0); PLATELET COUNT 121 x10e3/uL (140-360); RED BLOOD COUNT 3.63 x10e6/uL (3.6-5.1); RED CELL DISTRIBUTION WIDTH 12.2 % (11.7-14.4); WHITE BLOOD COUNT 4.57 x10e3/uL (4.8-10.8)
[2023-06-16 05:21] LABS: ALBUMIN 3.5 g/dL (3.5-5.0); ALBUMIN/GLOBULIN RATIO 1.3 (0.8-2.0); ANION GAP 12.6 mmol/L (8-16); CALCIUM 8.9 mg/dL (8.4-10.2); CREATININE, SERUM 0.58 mg/dL (0.57-1.11); POTASSIUM 3.6 mmol/L (3.5-5.1)
[2023-06-16 08:00] VITALS: BP 102/62; PULSE 83; RESP 18; TEMP 98.9; O2SAT 97
[2023-06-16] MEDS ORDERED: AMLODIPINE BESYLATE 5 MG TAB PO SCH (09:00)
[2023-06-16] MEDS ORDERED: CLOPIDOGREL BISULFATE 75 MG TAB PO SCH (09:00)
[2023-06-16] MEDS: ASPIRIN 81 MG ENTERIC COATED PO SCH (09:22)
[2023-06-16 09:25] VITALS: BP 102/62; PULSE 83; RESP 18; TEMP 98.9; O2SAT 97
[2023-06-16 12:09] VITALS: BP 120/63; PULSE 76; RESP 18; TEMP 98.3; O2SAT 100
[2023-06-16] MEDS ORDERED: ASPIRIN EC81 MG PO (15:24)
[2023-06-16] MEDS ORDERED: ATORVASTATIN CA40 MG PO (15:24)
[2023-06-16] MEDS ORDERED: PLAVIX75 MG PO (15:24)
[2023-06-16 16:00] VITALS: BP 120/66; PULSE 84; RESP 19; TEMP 99.1; O2SAT 98
== END 2023-06-16 16:11 | disposition home or self-care (01) | DRG 65 ==
LOC: ER 11:10 → ERHOLD 13:48 → MED/SURG 21:42
PROVIDERS: ADMIT Family Medicine Adult Medicine; ATTEND Family Medicine Adult Medicine
DX: I63.89 Other cerebral infarction (principal); E87.1 Hypo-osmolality and hyponatremia; G81.94 Hemiplegia, unspecified affecting left nondominant side; R53.1 Weakness; R26.9 Unspecified abnormalities of gait and mobility; I10 Essential (primary) hypertension; I65.03 Occlusion and stenosis of bilateral vertebral arteries; I65.23 Occlusion and stenosis of bilateral carotid arteries; R29.704 NIHSS score 4; R26.89 Other abnormalities of gait and mobility; F17.200 Nicotine dependence, unspecified, uncomplicated; E78.5 Hyperlipidemia, unspecified; I63.81 Other cerebral infarction due to occlusion or stenosis of small artery; I11.9 Hypertensive heart disease without heart failure; Z86.73 Personal history of transient ischemic attack (TIA), and cerebral infarction without residual deficits; Z20.822 Contact with and (suspected) exposure to COVID-19
CPT/HCPCS: 36415; 70496; 70498; 70551; 80048; 80053; 80061; 81001; 83036; 84443; 85025; 85610; 85730; 93005; 93306; 95819; 99284; Q9967; U0002

== ENCOUNTER → 2023-06-22 | Outpatient (RCR) | payer BC ==
[~2023-06-22] MED LIST changes: +AMLODIPINE BESYL5 MG PO; +ASPIRIN EC81 MG PO; +ATORVASTATIN CA40 MG PO; +PLAVIX75 MG PO
== END ==
LOC: PT 06-18 11:43
PROVIDERS: ATTEND Family Medicine Adult Medicine
DX: I69.398 Other sequelae of cerebral infarction (principal); G81.94 Hemiplegia, unspecified affecting left nondominant side

== ENCOUNTER 2023-06-25 07:23 | Outpatient (RCR) | payer BC | END 2023-07-22 | LOC: PT 07:23 | PROVIDERS: ATTEND Family Medicine Adult Medicine | DX: I69.898 Other sequelae of other cerebrovascular disease (principal) ==

== ENCOUNTER 2025-03-27 11:43 | Inpatient (IN) | payer BC, OTHER ==
[~2025-03-27] VITALS: Ht 170.2 cm; Wt 54.4 kg
[2025-03-27] MEDS: Morphine 4mg INJECTION 4 MG/ML INJ IV STA (13:07)
[2025-03-27] MEDS: ONDANSETRON HCL INJ 2MG/ML 2ML 2 MG/ML VIAL IV STA (13:07)
[2025-03-27] MEDS: SODIUM CHLORIDE 0.9% 1000ML 1,000 ML IV STA (13:09)
[2025-03-27 13:26] LABS: BASOPHILS % 0.1 % (0.0-1.0); EOSINOPHILS % 0.0 % (0.0-6.0); LYMPHOCYTES % 9.5 % (18.0-39.1); MONOCYTES % 10.6 % (4.4-11.3); NEUTROPHILS % 78.1 % (38.7-80.0); RED CELL DISTRIBUTION WIDTH 13.9 % (11.7-14.4)
[2025-03-27 13:42] LABS: INR 0.93
[2025-03-27 13:54] LABS: EST GLOMERULAR FILTRATION RATE 95.0 ML/MIN (>=60)
[2025-03-27] MEDS ORDERED: IOPAMIDOL 370 MG/ML 100 ML INFUS..BTL INJ ONE (14:02)
[2025-03-27 14:53] LABS: LEUKOCYTE ESTERASE ,URINE NEGATIVE (NEGATIVE); PROTEIN,URINE DIPSTICK NEGATIVE (NEGATIVE); URINE UROBILINOGEN 0.2 mg/dL (0.2 - 1)
[2025-03-27 16:53] VITALS: PULSE 89; RESP 16; TEMP 98.6
[2025-03-27] MEDS: PROMETHAZINE 12.5MG/ NACL 0.9% 12.5 MG/50 ML BAG IV PRN (17:34)
[2025-03-27] MEDS ORDERED: PROMETHAZINE 12.5MG/ NACL 0.9% 50 ML ONE (17:36)
[2025-03-27 17:47] LABS: AMPHETAMINES SCREEN,URINE NEGATIVE (NEGATIVE); CANNABINOIDS SCREEN,URINE NEGATIVE (NEGATIVE); COCAINE SCREEN,URINE NEGATIVE (NEGATIVE); METHADONE SCREEN, URINE NEGATIVE (NEGATIVE); OPIATES SCREEN,URINE POSITIVE (NEGATIVE)
[2025-03-27] MEDS ORDERED: DICYCLOMINE HCL 20 MG/2 ML VIAL IM PRN (18:30)
[2025-03-27 20:15] VITALS: BP 137/70; PULSE 59; RESP 18; TEMP 97.6; O2SAT 100
[2025-03-27] MEDS: SODIUM CHLORIDE 0.9% 1000ML 1,000 ML IV SCH (20:46)
[2025-03-27 21:00] VITALS: BP 137/70; PULSE 59; RESP 18; TEMP 97.6; O2SAT 100
[2025-03-27] MEDS ORDERED: HYDRALAZINE HCL 20 MG/ML VIAL IV PRN (21:15)
[2025-03-27] MEDS: Morphine 4mg INJECTION 4 MG/ML INJ IV PRN (21:47)
[2025-03-27 22:50] VITALS: BP 131/57; PULSE 58; RESP 18; TEMP 98.7; O2SAT 100
[2025-03-27 22:51] VITALS: BP 137/70; PULSE 59; RESP 18; TEMP 97.6; O2SAT 100
[2025-03-27] MEDS: MAALOX/LIDOCAINE/BENADRYL/NYST 30 ML BTL PO ONE (23:57)
[2025-03-28 05:31] LABS: BASOPHILS % 0.0 % (0.0-1.0); EOSINOPHILS % 0.1 % (0.0-6.0); LYMPHOCYTES % 12.1 % (18.0-39.1); MONOCYTES % 10.2 % (4.4-11.3); NEUTROPHILS % 76.1 % (38.7-80.0); RED CELL DISTRIBUTION WIDTH 13.9 % (11.7-14.4)
[2025-03-28 06:03] LABS: EST GLOMERULAR FILTRATION RATE 103.0 ML/MIN (>=60)
[2025-03-28 08:08] VITALS: BP 114/59; PULSE 63; RESP 18; TEMP 97.1; O2SAT 100
[2025-03-28 09:00] VITALS: BP 114/59; PULSE 63; RESP 18; TEMP 97.1; O2SAT 100
[2025-03-28 12:50] VITALS: BP 121/67; PULSE 59; RESP 18; TEMP 97.4; O2SAT 98
[2025-03-28] MEDS: ONDANSETRON HCL INJ 2MG/ML 2ML 2 MG/ML VIAL IV PRN (14:30)
[2025-03-28 16:00] VITALS: BP 139/68; PULSE 54; RESP 17; TEMP 97.6; O2SAT 100
[2025-03-28 20:00] VITALS: BP 140/69; PULSE 52; RESP 17; TEMP 97.5; O2SAT 100
[2025-03-28] MEDS: MELATONIN 5 MG TABLET PO PRN (20:13)
[2025-03-28 21:00] VITALS: BP 140/69; PULSE 52; RESP 18; TEMP 97.5; O2SAT 99
[2025-03-29] VITALS: BP 136/55; PULSE 50; RESP 17; TEMP 97.9; O2SAT 100
[2025-03-29 04:00] VITALS: BP 139/88; PULSE 54; RESP 17; TEMP 98.7; O2SAT 100
[2025-03-29 05:36] LABS: BASOPHILS % 0.1 % (0.0-1.0); EOSINOPHILS % 0.1 % (0.0-6.0); LYMPHOCYTES % 12.4 % (18.0-39.1); MONOCYTES % 9.1 % (4.4-11.3); NEUTROPHILS % 76.7 % (38.7-80.0); RED CELL DISTRIBUTION WIDTH 13.7 % (11.7-14.4)
[2025-03-29 06:19] LABS: EST GLOMERULAR FILTRATION RATE 102.0 ML/MIN (>=60)
[2025-03-29 08:00] VITALS: BP 139/88; PULSE 54; RESP 17; TEMP 98.7; O2SAT 100
[2025-03-29 08:55] VITALS: BP 134/66; PULSE 51; RESP 17; TEMP 98.3; O2SAT 100
[2025-03-29] MEDS ORDERED: MAALOX/LIDOCAINE/BENADRYL/NYST 30 ML BTL PO ONE (09:45)
[2025-03-29] MEDS: DEXTROSE 5%/0.45% SOD CHL 1,000 ML IV SCH (09:53)
[2025-03-29] MEDS ORDERED: DONNATAL/LIDOCAINE/MAALOX 30 ML SUSP PO ONE (10:00)
[2025-03-29 10:03] LABS: OSMOLALITY,SERUM 260 mOsm/kg (278-305)
[2025-03-29] MEDS: DONNATAL/LIDOCAINE/MAALOX 30 ML SUSP PO ONE (11:15)
[2025-03-29 12:00] VITALS: BP 142/59; PULSE 55; RESP 17; TEMP 97.5; O2SAT 100
[2025-03-29 16:00] VITALS: BP 135/67; PULSE 64; RESP 18; TEMP 97.5; O2SAT 98
[2025-03-29] MEDS ORDERED: MAALOX MAXIMUM355 ML PO (17:39)
[2025-03-29] MEDS ORDERED: ONDANSETRON ODT4 MG PO (17:39)
[2025-03-29] MEDS ORDERED: PANTOPRAZOLE SO40 MG PO (17:39)
== END 2025-03-29 19:00 | disposition home or self-care (01) | DRG 445 ==
LOC: ER 12:40 → ERHOLD 18:22 → MED/SURG2 20:18
PROVIDERS: ADMIT Family Medicine Adult Medicine; ATTEND Family Medicine Adult Medicine
DX: K80.20 Calculus of gallbladder without cholecystitis without obstruction (principal); E87.1 Hypo-osmolality and hyponatremia; K76.6 Portal hypertension; K29.70 Gastritis, unspecified, without bleeding; K74.60 Unspecified cirrhosis of liver; K76.0 Fatty (change of) liver, not elsewhere classified; I10 Essential (primary) hypertension; E78.5 Hyperlipidemia, unspecified; I25.10 Atherosclerotic heart disease of native coronary artery without angina pectoris; I65.29 Occlusion and stenosis of unspecified carotid artery; T65.291A Toxic effect of other tobacco and nicotine, accidental (unintentional), initial encounter; R11.2 Nausea with vomiting, unspecified; Z79.02 Long term (current) use of antithrombotics/antiplatelets; Z79.82 Long term (current) use of aspirin; Z86.73 Personal history of transient ischemic attack (TIA), and cerebral infarction without residual deficits; Z87.891 Personal history of nicotine dependence
CPT/HCPCS: 36415; 71045; 74177; 76705; 80053; 80307; 81001; 82947; 83605; 83690; 83735; 84295; 84484; 84520; 85025; 85610; 85730; 86304; 87086; 87186; 93005; 99284; J2270; J2405; J2470; J2543; J2550; J7030; Q9967